=== PATIENT | female | born 1975 | race Caucasian/White ===

== ENCOUNTER → 2017-10-04 | Outpatient (CLI) | payer BC ==
[~2017-10-04] MED LIST: MTR600X PO; PRENTAB26 PO
--- NOTE | 2017-10-04 18:09 | DIAGNOSTIC IMAGING REPORT ---
LEG LENGTH STUDY (WHOLE LEG) CLINICAL HISTORY: SCOLIOSIS COMPARISON STUDY: None FINDINGS: Fall length images of the lower extremities were obtained from the hips to ankles. These demonstrate symmetry of length with the right as well as left leg showing essentially identical length at 103 cm. IMPRESSION: Normal leg length study with both legs demonstrating 103 cm of total length. The above report was generated using voice recognition software. It may contain grammatical, syntax or spelling errors. Electronically signed by: Wilfredo Massey M.D. 10/04/2017 6:08 PM Dictated Date/Time: 10/04/2017 6:06 PM
== END | disposition home or self-care (01) ==
LOC: C.RAD 12:23
PROVIDERS: ATTEND Chiropractor
DX: M41.9 Scoliosis, unspecified (principal); M21.70 Unequal limb length (acquired), unspecified site

== ENCOUNTER 2017-10-23 09:45 | Emergency (ER) | payer BC ==
[~2017-10-23] VITALS: Ht 180.3 cm; Wt 62.5 kg
[2017-10-23 09:51] VITALS: Ht 180.3 cm; Wt 62.5 kg
[2017-10-23] MEDS ORDERED: SODIUM CHLORIDE 0.9% 1000ML 1,000 ML IV STA (10:06)
[2017-10-23] MEDS ORDERED: ONDANSETRON INJ 2 MG/ML 2 ML VIAL IV STA (10:06)
[2017-10-23 10:32] LABS: BASO % 0.1 %; BASO ABS # 0.01 K/uL (0-0.2); EOS % 0.6 %; EOS ABS # 0.05 K/uL (0-0.5); HEMATOCRIT 44.2 % (37-47); IG# 0.01 K/uL (0.00-0.02); LYMPH % 14.5 %; LYMPH ABS # 1.28 K/uL (1.2-3.4); MEAN CELL VOLUME 90.6 fL (80-100); MEAN CORPUSCULAR HEMOGLOBIN 30.7 pg (25-34); MEAN CORPUSCULAR HGB CONC 33.9 g/dl (32-36); MEAN PLATELET VOLUME 10.3 fL (7.4-10.4); MONO % 5.3 %; MONO ABS # 0.47 K/uL (0.11-0.59); NEUT % 79.4 %; PLATELET COUNT 248 K/uL (130-400); RED CELL DISTRIBUTION WIDTH CV 12.8 % (11.5-14.5); RED CELL DISTRIBUTION WIDTH SD 42.6 fL (36.4-46.3); WHITE BLOOD COUNT 8.82 K/uL (4.8-10.8)
[2017-10-23] MEDS ORDERED: ESCI1TAB10 PO (10:33)
[2017-10-23 10:49] LABS: ALBUMIN 4.2 gm/dl (3.4-5.0); CALCIUM 9.3 mg/dl (8.5-10.1); CREATININE 0.82 mg/dl (0.60-1.20); POTASSIUM 3.8 mmol/L (3.5-5.1); TOTAL PROTEIN 8.2 gm/dl (6.4-8.2)
[2017-10-23] MEDS ORDERED: ONDA4TAB10 SL (12:15)
--- NOTE | 2017-10-23 12:15 | EMERGENCY ROOM VISIT NOTE ---
History Report prepared by Darian: Tay Osorio Under the Supervision of: Dr. Edouard Villegas D.O. First contact with patient: 09:51 Chief Complaint: NAUSEA Stated Complaint: NAUSEA, DIARRHEA History of Present Illness The patient is a 42 year old female who presents to the Emergency Room with complaints of intermittent vomiting beginning shortly prior to arrival. She also complains of nausea, and headache. The patient has had mild diarrhea as well. She took Emetrol for her nausea, but vomited immediately after taking it. She has vomited four times total. The patient's headache has since resolved. She denies abdominal pain. Her LNMP was one week ago. The patient notes that she ate at [employer] last night which was new. Her son has strep throat and is currently on his second round of antibiotics. Source of History: patient Onset: Shortly prior to arrival Symptom Intensity: Four episodes Quality: other (vomiting) Timing: intermittent Associated Symptoms: + headache (resolved), + nausea, No abdominal pain Review of Systems See HPI for pertinent positives & negatives. A total of 10 systems reviewed and were otherwise negative. Past Medical & Surgical Medical Problems: (1) No Known Active Medical Problems Family History No pertinent family history stated. Social History Smoking Status: Never Smoker Marital Status: Housing Status: lives with family Current/Historical Medications Scheduled Escitalopram Oxalate (Lexapro), 15 MG PO DAILY Allergies Coded Allergies: Eggs or Egg-derived Products (Unverified Allergy, Unknown, GI UPSET, ) Milk (Unverified Allergy, Unknown, GI UPSET, 10/23/17) Physical Exam Vital Signs Date Time Temp Pulse Resp B/P (MAP) Pulse Ox O2 Delivery O2 Flow Rate FiO2 10/23/17 12:02 70 101/51 98 Room Air 10/23/17 09:51 36.4 95 18 128/78 100 Room Air Physical Exam CONSTITUTIONAL/VITAL SIGNS: Reviewed / noted above. GENERAL: Non-toxic in appearance. INTEGUMENTARY: Warm, dry, and [place]. HEAD: Normocephalic. EYES: without scleral icterus or trauma. ENT/OROPHARYNX: clear and moist. LYMPHADENOPATHY/NECK: Is supple without lymphadenopathy or meningismus. RESPIRATORY: Lungs clear and equal. CARDIOVASCULAR: Regular rate and rhythm. GI/ABDOMEN: Soft and nontender. No organomegaly or pulsatile mass. No rebound or guarding. Normal bowel sounds. EXTREMITIES: Warm and well perfused. BACK: No CVA tenderness. NEUROLOGICAL: Intact without focal deficits. PSYCHIATRIC: normal affect. MUSCULOSKELETAL: Normally developed with good muscle tone. Medical Decision & Procedures Laboratory Results 10/23/17 09:55 Red Blood Count 4.88, Mean Corpuscular Volume 90.6, Mean Corpuscular Hemoglobin 30.7, Mean Corpuscular Hemoglobin Concent 33.9, Mean Platelet Volume 10.3, Neutrophils (%) (Auto) 79.4, Lymphocytes (%) (Auto) 14.5, Monocytes (%) (Auto) 5.3, Eosinophils (%) (Auto) 0.6, Basophils (%) (Auto) 0.1, Neutrophils # (Auto) 7.00, Lymphocytes # (Auto) 1.28, Monocytes # (Auto) 0.47, Eosinophils # (Auto) 0.05, Basophils # (Auto) 0.01 10/23/17 09:55 Test 10/23/17 09:55 White Blood Count 8.82 K/uL (4.8-10.8) Red Blood Count 4.88 M/uL (4.2-5.4) Hemoglobin 15.0 g/dL (12.0-16.0) Hematocrit 44.2 % (37-47) Mean Corpuscular Volume 90.6 fL (80-100) Mean Corpuscular Hemoglobin 30.7 pg (25-34) Mean Corpuscular Hemoglobin Concent 33.9 g/dl (32-36) Platelet Count 248 K/uL (130-400) Mean Platelet Volume 10.3 fL (7.4-10.4) Neutrophils (%) (Auto) 79.4 % Lymphocytes (%) (Auto) 14.5 % Monocytes (%) (Auto) 5.3 % Eosinophils (%) (Auto) 0.6 % Basophils (%) (Auto) 0.1 % Neutrophils # (Auto) 7.00 K/uL (1.4-6.5) Lymphocytes # (Auto) 1.28 K/uL (1.2-3.4) Monocytes # (Auto) 0.47 K/uL (0.11-0.59) Eosinophils # (Auto) 0.05 K/uL (0-0.5) Basophils # (Auto) 0.01 K/uL (0-0.2) RDW Standard Deviation 42.6 fL (36.4-46.3) RDW Coefficient of Variation 12.8 % (11.5-14.5) Immature Granulocyte % (Auto) 0.1 % Immature Granulocyte # (Auto) 0.01 K/uL (0.00-0.02) Anion Gap 9.0 mmol/L (3-11) Est Creatinine Clear Calc Drug Dose 90.0 ml/min Estimated GFR () 103.7 Estimated GFR (Non- 89.5 BUN/Creatinine Ratio 17.3 (10-20) Calcium Level 9.3 mg/dl (8.5-10.1) Total Bilirubin 0.6 mg/dl (0.2-1) Direct Bilirubin 0.1 mg/dl (0-0.2) Aspartate Amino Transf (AST/SGOT) 11 U/L (15-37) Alanine Aminotransferase (ALT/SGPT) 18 U/L (12-78) Alkaline Phosphatase 61 U/L (45-117) Total Protein 8.2 gm/dl (6.4-8.2) Albumin 4.2 gm/dl (3.4-5.0) Lipase 122 U/L (73-393) Laboratory results as stated above per my review. Medications Administered Medications (Trade) Dose Ordered Sig/Rah Route Start Time Stop Time Status Last Admin Dose Admin Sodium Chloride 1,000 ml @ 999 mls/hr Q1H1M STAT IV 10/23/17 10:06 10/23/17 11:06 DC 10/23/17 10:14 999 MLS/HR Ondansetron HCl (Zofran Inj) 4 mg NOW STAT IV 10/23/17 10:06 10/23/17 10:07 DC 10/23/17 10:13 4 MG ED Course 0952: Previous medical records were reviewed. The patient was evaluated in room A3. A complete history and physical examination was performed. 1006: Ordered Zofran Inj 4 mg IV, Sodium Chloride 1000 ml @ 999 mls/hr IV. 1212: On reevaluation, the patient is resting comfortably. I discussed the results and findings with the patient. She verbalized agreement of the treatment plan. She was discharged home. Medical Decision Differential diagnosis: Etiologies such as gastroenteritis, food borne illness, infections, appendicitis , diverticulitis, inflammatory bowel disease, obstruction, GI bleed, biliary pathology, as well as others were entertained. This is a 42-year-old female who presents to the ED with a chief complaint of nausea as well as some vomiting and a frontal headache that has improved. She states that her symptoms started at 7 AM. She had vomiting 4. She feels dehydrated. The patient's physical exam was unremarkable. Her CBC and complete metabolic panel and lipase were negative. She was treated with IV fluids and IV Zofran. On reassessment, she is feeling much better. She was discharged with a prescription for Zofran ODT. Medication Reconcilliation Current Medication List: was personally reviewed by me Blood Pressure Screening Patient's blood pressure: Normal blood pressure Blood pressure disposition: Did not require urgent referral Impression Primary Impression: Nausea & vomiting Scribe Attestation The scribe's documentation has been prepared under my direction and personally reviewed by me in its entirety. I confirm that the note above accurately reflects all work, treatment, procedures, and medical decision making performed by me. Departure Information Dispostion Home / Self-Care Prescriptions Ondasetron Odt (ZOFRAN ODT) 4 Mg Tab 4 MG SL Q6H for Nausea, #20 TAB Prov: Edouard Villegas D.O. 10/23/17 Referrals Blayne Carcamo M.D. (PCP) Patient Instructions My [facility] Additional Instructions Zofran: Allow one tablet to dissolve under the tongue every 6 hours as needed for nausea or vomiting. Follow-up with your doctor for further care and evaluation in 1-2 days as needed. Return to the emergency department for worsening or new symptoms or any concerns. You have been examined and treated today on an emergency basis only. This is not a substitute for, or an effort to provide, complete comprehensive medical care. It is impossible to recognize and treat all injuries or illnesses in a single emergency department visit. It is therefore important that you follow up closely with your doctor. Call as soon as possible for an appointment.
[2017-10-23 12:27] VITALS: BP 101/51; PULSE 70; TEMP 36.4; O2SAT 98
== END 2017-10-23 12:27 | disposition home or self-care (01) ==
LOC: C.EDB 09:46 → C.EDA 12:27
DX: R11.2 Nausea with vomiting, unspecified (principal); Z79.899 Other long term (current) drug therapy; Z91.011 Allergy to milk products; Z91.012 Allergy to eggs